=== PATIENT | female | born 1945 | race Caucasian/White ===

== ENCOUNTER 2017-01-14 09:16 | Day surgery (SDC) | payer MEDICARE ==
[2017-01-12 08:44] LABS: BASOPHILS 0.5 %; BASOPHILS ABSOLUTE 0.03 10/3/uL (0.0-0.16); EOSINOPHILS 2.7 %; EOSINOPHILS ABSOLUTE 0.16 10/3/uL (0.0-0.53); HEMATOCRIT 41.7 % (36.0-48.0); HEMOGLOBIN 14.2 g/dL (12.0-16.0); IMMATURE GRANULOCYTES 0.2 %; IMMATURE GRANULOCYTES ABSOLUTE 0.01 10/3/uL (0.0-0.11); LYMPHOCYTES 29.2 %; LYMPHOCYTES ABSOLUTE 1.74 10/3/uL (0.67-4.30); MEAN CORPUS HGB CONC 34.1 g/dL (32.0-36.0); MEAN CORPUSCULAR HEMOGLOB 29.8 pg (26.0-34.0); MEAN CORPUSCULAR VOLUME 87.6 fL (80-100); MEAN PLATELET VOLUME 10.1 fL (9.2-13.0); MONOCYTES 11.6 %; MONOCYTES ABSOLUTE 0.69 10/3/uL (0.21-1.20); NEUTROPHILS 55.8 %; NEUTROPHILS ABSOLUTE 3.32 10/3/uL (2.02-8.40); PLATELET COUNT 237 10/3/uL (150-400); RBC DISTRIBUTION WIDTH 13.3 % (12.0-16.0); RED CELL COUNT 4.76 10/6/uL (4.0-5.6)
[2017-01-12 08:47] LABS: MANUAL DIFF NO %
[2017-01-12 09:06] LABS: A/G RATIO 1.1 (0.7-1.9); ALBUMIN 3.4 G/DL (3.5-5.0); ALKALINE PHOSPHATASE 93 U/L (45-117); BUN (BLOOD UREA NITROGEN) 24 MG/DL (6-23); CALCIUM, SERUM 9.1 MG/DL (8.5-10.4); CHLORIDE, SERUM 106 MMOL/L (96-112); CO2 (CARBON DIOXIDE) 31 MMOL/L (24-34); CREATININE 0.68 MG/DL (0.55-1.02); GFR AFRICAN AMERICAN 101 ML/MIN (>=60); GFR NON AFRICAN AMERICAN 87 ML/MIN (>=60); GLOBULIN 3.1 G/DL (2.5-4.1); GLUCOSE, SERUM 105 MG/DL (60-99); SGOT(AST) 18 U/L (5-40); SGPT(ALT) 21 U/L (5-65); SODIUM, SERUM 141 MMOL/L (135-148); TOTAL BILIRUBIN 0.6 MG/DL (0-1.2); TOTAL PROTEIN 6.5 G/DL (6.0-8.5)
--- NOTE | ~2017-01-14 | OP ---
Record Of Operation [facility] [address] [place]. [address] NAME: GROVER ZAPIEN : 41 STATUS : REG [facility] PAT#: [id number] AGE: 71 ADM/REG DATE : 01/14/17 MR#: [id number] REPORT SERV DATE: 01/14/17 DICTATED BY: IZZY MCDONALD III DATE: 01/14/17 REPORT STATUS : Draft TRANSCRIBED BY: MODL DATE: 01/14/17 DATE OF PROCEDURE: 01/14/2017 PREOPERATIVE DIAGNOSIS: History of neuropathy, with need for removal of right subclavian vein Port-A-Cath which is no longer being used. POSTOPERATIVE DIAGNOSIS: History of neuropathy, with need for removal of right subclavian vein Port-A-Cath which is no longer being used. PROCEDURE: Removal of right subclavian vein Port-A-Cath. SURGEON: Izzy Mcdonald M.D. ANESTHESIA: General with intubation. COMPLICATIONS: None. ESTIMATED BLOOD LOSS: Less than 5 mL. SPECIMENS: Port-A-Cath for identification. DRAINS: None. LAP AND SPONGE COUNT: Correct x3. BRIEF HISTORY: This 71-year-old female has a history of a Port-A-Cath which was placed for treatment of neuropathy. The patient's treatment has been completed and she is no longer using the Port-A-Cath. It was felt that removal of the Port-A-Cath was indicated. This procedure, the risks, benefits, and alternatives, including but not limited to the risk for bleeding, infection, air embolus, pericardial tamponade, dislodgement of tubing requiring extraction, and unforeseen complications including deep venous thrombosis, pulmonary embolus, myocardial infarction, stroke, pneumonia, and , were fully explained to the patient prior to surgery. Her questions were answered. She understood the risks and agreed to the surgery as planned. DESCRIPTION OF PROCEDURE: After being properly identified and after having delayed the surgery for several hours because the patient ate prior to surgery, she was taken to the operating room and placed in the supine position on the operating room table. General anesthesia was administered and she was intubated without difficulty. The upper chest and neck areas were prepped and draped sterilely in the usual fashion. After an appropriate "time-out" per JCAHO standards, a small incision was made directly over the Port-A-Cath in the right infraclavicular area. The incision was continued through the subcutaneous tissue. Hemostasis was controlled with cautery. The capsule around the Port-A-Cath was divided. The sutures holding the Port-A-Cath in place were removed. The Port-A-Cath housing and tubing were removed. The entire tubing was removed. Pressure was held at the exit site of the tubing from the subcutaneous tissue to prevent air embolus. This exit site was closed Record Of Operation [address] [address] NAME: GROVER ZAPIEN : 41 STATUS : REG [facility] PAT#: [id number] AGE: 71 ADM/REG DATE : 01/14/17 MR#: [id number] REPORT SERV DATE: 01/14/17 DICTATED BY: IZZY MCDONALD III DATE: 01/14/17 REPORT STATUS : Draft TRANSCRIBED BY: KYLEE DATE: 01/14/17 with a 3-0 Vicryl suture. Hemostasis was assured. The subcutaneous tissue was closed with a running 3-0 Vicryl suture. The skin was closed with running subcuticular 4-0 Monocryl stitch. The incision was injected with 0.5% Marcaine. Dressings were applied. Anesthesia was reversed and the patient was taken to recovery in stable condition. She tolerated the procedure well. Her family was informed of the results of surgery. The patient will be discharged when stable and comfortable. Her family was advised that she should keep the wound clean and dry for 48 hours, that she should not drive for two to three days after surgery or avoid using narcotics. She was asked to return in two weeks for followup or sooner if any fever, chills, wound drainage, or other problems prior to that time. She was given a prescription for Percocet 7.5 one t.i.d., #12, as needed for pain, which she was advised not to use while driving. CARLEE/KYLEE Izzy Mcdonald III, M.D. / [id number] CC: Izzy Mcdonald III, M.D.
--- NOTE | ~2017-01-14 | PREOPHP ---
PreOp History and Physical [place] [id number] [facility] [place]. [address] NAME: GROVER ZAPIEN : 41 STATUS : REG [facility] PAT#: [id number] AGE: 71 ADM/REG DATE : 01/14/17 MR#: [id number] REPORT SERV DATE: 01/14/17 DICTATED BY: IZZY SCHREIBER III DATE: 01/14/17 REPORT STATUS : Draft TRANSCRIBED BY: KYLEE DATE: 01/14/17 HISTORY OF PRESENT ILLNESS: This 71-year-old female comes to the operating room for removal of a subclavian vein Port-A-Cath. The patient has a history of neuropathy for which she has been taking IVIG. She has completed her treatment and the Port-A-Cath is no longer being used, and she comes now for removal of her Port-A-Cath. PAST MEDICAL HISTORY: History of neuropathy. MEDICATIONS: As per medication list. PHYSICAL EXAMINATION: GENERAL: This is a female, in no acute distress. She is alert, oriented x3. HEENT: Unremarkable. NEURO: Cranial nerves 2 through 12 were normal. LUNGS: Clear. CARDIAC: Normal. She has a right infraclavicular Port-A-Cath in place. ASSESSMENT: A 71-year-old female with need for removal of unused right subclavian vein Port- A-Cath. PLAN: The patient comes to the operating room now for removal of this Port-A-Cath. This procedure, the risks, benefits, and alternatives, including but not limited to the risk for bleeding, infection, air embolus, pericardial tamponade, dislodgement of Port-A-Cath tubing requiring extraction, and unforeseen complications including deep venous thrombosis, pulmonary embolus, myocardial infarction, stroke, pneumonia, have been explained to the patient prior to surgery. Her questions were answered. She understands the risks and agrees to surgery as planned. CARLEE/KYLEE Izzy Schreiber III, M.D. / [id number] CC: Izzy Schreiber III, M.D.
[~2017-01-14 09:16] MED LIST: BEN25 PO; CHOLESTEROL REDUCTIO PO; FISH-EPA1000 MG PO; FLUCON150 PO; IBU-200200 MG PO; IVIGLIQ IV; IVIGPOW IV; JOINT HEALTH; MULTIVIT/MIN PO; OS500+D PO; POTASSIUM95 MG PO; VITAMIN B PO; VITAMIN D1000 UNI1 PO; VITAMIN D31000 UNIT PO; VITE PO; [UNRECOGNIZED DRUG - OTHER]; [UNRECOGNIZED DRUG - OTHER]; [UNRECOGNIZED DRUG - OTHER] PO; [UNRECOGNIZED DRUG - OTHER] PO
== END 2017-01-14 20:01 | disposition home or self-care (01) ==
LOC: SDC 09:16
PROVIDERS: Surgery
PROC: 05PY03Z Removal of Infusion Device from Upper Vein, Open Approach (ICD-10-PCS; principal; 2017-01-14 11:15)
DX: Z45.2 Encounter for adjustment and management of vascular access device (principal); Z86.69 Personal history of other diseases of the nervous system and sense organs; Z91.048 Other nonmedicinal substance allergy status; Z79.899 Other long term (current) drug therapy; Z87.891 Personal history of nicotine dependence; Z98.51 Tubal ligation status; Z98.890 Other specified postprocedural states
CPT/HCPCS: 71020; 80053; 85025; 88300; 93005; A9270-GY; J0330; J0690; J2250; J2405; J3010